=== PATIENT | male | born 1960 | race Two or more races ===

== ENCOUNTER 2018-11-28 07:34 | Day surgery (SDC) | payer MEDICAID ==
[2018-11-23 08:48] LABS: Basophils # (auto) 0.1 uL; Basophils % (auto) 0.9 % (0.0-2.0); Eosinophils # (auto) 0.2 uL; Hematocrit 47.2 % (41.0-53.0); Hemoglobin 16.3 g/dL (13.5-17.5); Lymphocytes # (auto) 1.5 uL; Lymphocytes % (auto) 26.8 % (10.0-50.0); Mean Corpuscular Hemoglobin 32.2 pg (28.0-32.0); Mean Corpuscular Hgb Conc. 34.5 g/dL (32.0-36.0); Mean Corpuscular Volume 93.1 fL (80.0-100.0); Monocytes # (auto) 0.6 uL; Monocytes % (auto) 10.3 % (0.0-12.0); Neutrophils # (auto) 3.3 uL; Nucleated Red Blood Cells % 0.1 %; Platelet Count (auto) 162 10^3/uL (140-450); Red Blood Cells 5.07 10^6/uL (4.5-5.90); Red Cell Distribution Width 13.9 % (11.8-14.3); White Blood Cell 5.6 10^3/uL (4.4-10.8)
[2018-11-23 09:01] LABS: INR 1.05 (0.9-1.15); Partial Thromboplastin Time 28.5 sec (23.64-32.05)
[2018-11-23 09:12] LABS: Urine Bacteria NONE SEEN /hpf (None Seen); Urine Blood Negative /uL (Negative); Urine Specific Gravity 1.025 (1.001-1.035); Urine WBC 2 /hpf (0 - 3)
[2018-11-23 09:16] LABS: Calcium 8.7 mg/dL (8.5-10.1)
[2018-11-23 09:21] LABS: BUN/Creatinine Ratio 15.7; Bilirubin, Total 0.4 mg/dL (0.2-1.0); Total Protein 8.2 g/dL (6.4-8.2)
[~2018-11-28] VITALS: Ht 172.7 cm; Wt 86.2 kg
[~2018-11-28 07:34] MED LIST: CETI10TA80 PO; DOCU-94 PO; ENAL10TA2 PO; GEMF600T7 PO; GLIP5TAB12 PO; METO-281 PO; OMEP20TA PO
[2018-11-28] MEDS ORDERED: fentaNYL CITRATE 100 MCG/2 ML VL ONE (09:13)
[2018-11-28] MEDS ORDERED: SODIUM CHLORIDE LOCK 10 ML ONE (09:13)
[2018-11-28] MEDS ORDERED: MIDAZOLAM HCL 1MG/1ML-2 ML VIAL ONE (09:13)
[2018-11-28] MEDS ORDERED: ONDANSETRON HCL 4 MG/2 ML VIAL ONE (09:13)
[2018-11-28] MEDS ORDERED: PROPOFOL 10 MG/ML 20 ML IV ONE (09:13)
[2018-11-28] MEDS ORDERED: HYDROmorphone HCL 2 MG/ML VL IV PRN (09:15)
[2018-11-28] MEDS ORDERED: METOCLOPRAMIDE HCL 5MG/ml INJ 2ml VIAL IV PRN (09:15)
[2018-11-28] MEDS ORDERED: ACCU-CHEK COMFORT CURVE STRIP VI ONE (09:15)
[2018-11-28] MEDS ORDERED: ROPIVACAINE 0.5% (5MG/ML) 20ML AMPULE IJ ONE (09:53)
[2018-11-28] MEDS ORDERED: ceFAZolin 1GM/50ML 50 ML IV ONE (10:05)
[2018-11-28 10:54] VITALS: BP 121/79
== END 2018-11-28 11:00 | disposition home or self-care (01) ==
LOC: SUR 07:34
PROVIDERS: ATTEND Podiatrist Foot & Ankle Surgery
DX: G57.52 Tarsal tunnel syndrome, left lower limb (principal); M67.272 Synovial hypertrophy, not elsewhere classified, left ankle and foot; K21.9 Gastro-esophageal reflux disease without esophagitis; E11.9 Type 2 diabetes mellitus without complications; E78.00 Pure hypercholesterolemia, unspecified; I10 Essential (primary) hypertension; K57.30 Diverticulosis of large intestine without perforation or abscess without bleeding; E78.5 Hyperlipidemia, unspecified; F12.90 Cannabis use, unspecified, uncomplicated; Z98.890 Other specified postprocedural states; Z90.5 Acquired absence of kidney; Z85.528 Personal history of other malignant neoplasm of kidney; Z79.84 Long term (current) use of oral hypoglycemic drugs
CPT/HCPCS: 27626; 36415; 80053; 81001; 82962; 85025; 85610; 85730; 88304; J0690; J2250; J2405; J2704; J2795; J3010; L3260